=== PATIENT | female | born 1990 | race Native Hawaiian/Other Pacific Islander ===

== ENCOUNTER 2019-07-18 07:56 | Inpatient (IN) ==
[2019-07-18 08:24] LABS: URINE SOURCE VOIDED
[2019-07-18] MEDS ORDERED: TYLENOL PO PRN (08:47)
[2019-07-18] MEDS ORDERED: AMPICILLIN 2 GM in NS 100 ML IV ONE (08:47)
[2019-07-18] MEDS ORDERED: REGLAN PO ONE (08:47)
[2019-07-18] MEDS ORDERED: STADOL IV PRN (08:47)
[2019-07-18] MEDS ORDERED: KEFZOL 1 GM/D5W 1 GM/50 ML IVPB IV PRN (08:47)
[2019-07-18] MEDS ORDERED: PEPCID PO PRN (08:47)
[2019-07-18] MEDS ORDERED: PEPCID PO ONE (08:47)
[2019-07-18] MEDS ORDERED: ZOFRAN IV PRN (08:47)
[2019-07-18] MEDS ORDERED: PEPCID IV PRN (08:47)
[2019-07-18 08:54] LABS: BILIRUBIN URINE NEGATIVE (NEGATIVE); BLOOD URINE NEGATIVE (NEGATIVE); COLOR YELLOW; GLUCOSE URINE NEGATIVE (NEGATIVE); KETONE URINE NEGATIVE (NEGATIVE); LEUKOCYTES URINE MODERATE (NEGATIVE); NITRITE URINE NEGATIVE (NEGATIVE); PROTEIN URINE NEGATIVE (NEGATIVE); SP GRAVITY URINE 1.015; TURBIDITY URINE CLEAR (CLEAR); UROBILINOGEN URINE NORMAL (NORMAL)
[2019-07-18] MEDS ORDERED: PITOCIN 30 UNITS/NS 30 UNIT/500 ML IV.SOLN IV SCH ×2 (09:00→14:30)
[2019-07-18] MEDS ORDERED: SODIUM CHLORIDE 0.9% INJ SCH (09:00)
[2019-07-18] MEDS ORDERED: LR 1,000 ML IV SCH (09:00)
[2019-07-18] MEDS ORDERED: LR 3,000 ML ONE (09:01)
[2019-07-18] MEDS ORDERED: AMPICILLIN ONE (09:01)
[2019-07-18 09:03] LABS: UR AMPHETAMINES QUAL NONE DETECTED (NONE DETECT); UR BARBITUATES QUAL NONE DETECTED (NONE DETECT); UR BENZODIAZEPIN QUAL NONE DETECTED (NONE DETECT); UR CANNABINOIDS QUAL NONE DETECTED (NONE DETECT); UR COCAINE QUAL NONE DETECTED (NONE DETECT); UR METHADONE QUAL NONE DETECTED (NONE DETECT); UR OPIATES QUAL NONE DETECTED (NONE DETECT); UR OXYCODONE QUAL NONE DETECTED (NONE DETECT); UR PCP QUAL NONE DETECTED (NONE DETECT)
[2019-07-18] MEDS ORDERED: SODIUM CHLORIDE 0.9% 10 ML ONE (09:03)
[2019-07-18 09:19] LABS: BASO# 0.08 X1000 (0.0-0.2); BASO% 0.6 % (0.0-0.8); EOS# 0.35 X1000 (0.0-0.7); EOS% 2.8 % (0.0-10.0); HEMATOCRIT 31.5 % (37.0-47.0); HEMOGLOBIN 9.1 g/dL (12.0-16.0); IMM GRAN# 0.04 X1000 (0.0-0.04); IMM GRAN% 0.3 % (0.0-0.5); LYMPH# 2.74 X1000 (1.2-3.4); LYMPH% 21.7 % (20.5-51.1); MCH 17.4 PG (27-31); MCHC 28.9 g/dL (33-37); MCV 60.2 FL (81-99); MONO# 0.73 X1000 (0.11-0.59); MONO% 5.8 % (1.7-9.3); NEUT# 8.71 X1000 (1.4-6.5); NEUT% 68.8 % (42.2-75.2); PLT 294 X1000 (130-400); RBC 5.23 XMIL (4.2-5.4); RDW 20.2 % (11.5-14.5); WBC 12.65 X1000 (4.8-10.8)
[2019-07-18 09:38] LABS: EOS 1 % (1-10); LYMPHS 21 % (21-51); MONO 6 % (1-9); NRBC 1 % (0-0); SEGS 71 % (42-75)
[2019-07-18 09:39] LABS: HYPOCHROM 2+; MICROCYTOSIS 1+
[2019-07-18 12:22] LABS: RAPID HIV PRESUMPTIVE NEGATIVE; RPR NON-REACTIVE (NONREACTIVE); RUBELLA SCREEN IMMUNE (IMMUNE)
[2019-07-18] MEDS ORDERED: AMPICILLIN 1 GM in NS 50 ML IV SCH (12:49)
[2019-07-18] MEDS ORDERED: PERI MEDS (DERMOPLAST/NUPERCAINAL/TUCKS) MISC PRN (14:27)
[2019-07-18] MEDS ORDERED: XYLOCAINE-MPF 1% INJ PRN (14:27)
[2019-07-18] MEDS ORDERED: PITOCIN IM PRN (14:27)
[2019-07-18] MEDS ORDERED: CYTOTEC PO PRN (14:27)
[2019-07-18] MEDS ORDERED: M-M-R II VACCINE SUBQ ONE (14:27)
[2019-07-18] MEDS ORDERED: MINERAL OIL PO PRN (14:27)
[2019-07-18] MEDS ORDERED: BENADRYL IV PRN (14:27)
[2019-07-18] MEDS ORDERED: ATARAX PO PRN (14:27)
[2019-07-18] MEDS ORDERED: BOOSTRIX VACCINE IM ONE (14:27)
[2019-07-18] MEDS ORDERED: HYDROXYZINE IM PRN (14:27)
[2019-07-18] MEDS ORDERED: AMBIEN PO PRN (14:27)
[2019-07-18] MEDS ORDERED: BENADRYL PO PRN (14:27)
[2019-07-18] MEDS ORDERED: PITOCIN 20 UNITS/NS 20 UNITS/1,000 ML IV.SOLN IV SCH (14:30)
[2019-07-18] MEDS: MOTRIN PO PRN (19:42)
--- NOTE | 2019-07-18 20:30 | HISTORY AND PHYSICAL ---
HISTORY OF PRESENT ILLNESS: Ms. Clark is a 29-year-old, G5, P4-0-0-4, at 38 weeks and 6 days, who presents to Labor and Delivery in active labor. The patient reports good movement. Admits to contractions starting at midnight. Denies leakage of fluid or vaginal bleeding. The patient reports receiving care with [facility] with Dr. Carl, and has not seen an admitting coordinator physician since [facility] OB services ceased to exist. PAST MEDICAL HISTORY: Noncontributory, none. PAST SURGICAL HISTORY: None. OBSTETRICAL HISTORY: G5, P4-0-0-4. Four full-term vaginal deliveries. No complications. 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 Carl at [facility]. Reports negative for intraepithelial lesions or malignancies. Menarche at age 11 or 12. Admits to irregular cycles and heavy bleeding. SOCIAL HISTORY: Tobacco cessation in 2014. Admits to alcohol use 1 drink per week prior . No alcohol use with current . Denies drug use. ALLERGIES: No known drug allergies. VITAL SIGNS: Temperature 98.1 degrees Fahrenheit, pulse rate 88, respiration rate 20, blood pressure 147/83, O2 saturations 100% on room air. Height 5 feet 4 inches, weight 188 pounds, body mass index 32.3 kg/m2. PHYSICAL EXAMINATION: GENERAL: No acute distress. Alert, awake, oriented x3. RESPIRATORY: Clear to auscultation bilaterally. Negative rhonchi, rales, or wheezing. CARDIOVASCULAR: Positive S1, S2. Regular rate and rhythm. ABDOMEN: Gravid, nontender to palpation, soft. EXTREMITIES: No calf tenderness. There is +1 edema. PELVIC: Sterile vaginal exam: 5 cm dilated, 70% effaced, -3 station. Electronic monitoring category 1 tracing. Contractions every 5 to 7 minutes. LABORATORY: WBCs 12.65, hemoglobin 9.1, hematocrit 31.5, platelets 294,000. Glucose 93. Urine drug screen is negative. RPR nonreactive. HIV negative. Rubella immune. ASSESSMENT: Ms. Burrows is a 29-year-old, 5, para 4-0-0-4, at 38 weeks and 6 days, who presents to Labor and Delivery in active labor. PLAN: 1. Admit to Labor and Delivery. 2. Obtain routine labor labs. 3. Continuous electronic monitoring. 4. Augment with artificial rupture of membrane and Pitocin if needed. 5. Patient counseled on risks, benefits, and alternatives of spontaneous vaginal delivery, the risks not limited to bleeding, infection, vaginal laceration, and/or emergency delivery. The patient understands the risks and agrees to the following procedure. Estimated weight 6.5 pounds. 6. Anticipate vaginal delivery.
[2019-07-18] MEDS: TRANDATE PO SCH (20:52)
[2019-07-18] MEDS: PERICOLACE PO SCH (20:52)
[2019-07-18 23:46] LABS: HIV ANTIBODY SCREEN SEE COMMENTS
[2019-07-19 06:58] LABS: HEMATOCRIT 23.5 % (37.0-47.0); HEMOGLOBIN 6.7 g/dL (12.0-16.0); MCH 17.6 PG (27-31); MCHC 28.5 g/dL (33-37); MCV 61.8 FL (81-99); PLT 225 X1000 (130-400); RDW 19.9 % (11.5-14.5); WBC 15.54 X1000 (4.8-10.8)
[2019-07-19] MEDS: MOTRIN PO PRN ×2 (08:01→18:18)
[2019-07-19] MEDS: TRANDATE PO SCH ×3 (08:01→21:19)
--- NOTE | 2019-07-19 08:38 | OPERATIVE NOTE ---
PROCEDURE DATE: 07/18/2019 PROCEDURE PERFORMED: Spontaneous vaginal delivery. SURGEON: Dr. Hakeem Mckenna. 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 The vertex was delivered spontaneously over intact perineum. The nuchal cord was identified and reduced after delivery of the head. The anterior shoulders were delivered atraumatically by maternal expulsive efforts, and with the assistance of downward traction. The posterior shoulder delivered with maternal expulsive efforts and upward traction. The remainder of the fetus delivered spontaneously. The was placed on the patient's abdomen and assessed by waiting yoghurt maker. The cord was clamped and cut. Cord blood was obtained for blood gas analysis to enhance uterine contractions. IV oxytocin was administered. The cervix, vagina, and perineum were inspected for lacerations. 2nd degree laceration noted at perineum and repaired with 2-0 chromic in subsequent layers. Good hemostasis was established ESTIMATED BLOOD LOSS: 150 mL. [facility]
[2019-07-19 08:45] LABS: HEPATITIS B SURFACE ANTIGEN SEE COMMENTS
[2019-07-19] MEDS ORDERED: FERROUS SULFATE PO SCH (09:00)
[2019-07-19] MEDS: PERICOLACE PO SCH (21:03)
--- NOTE | 2019-07-20 07:54 | OB/GYN PROGRESS NOTE ---
- Subjective 29 yo PPD#2 s/p at 38w6d with limited care, anemia Patient seen and examined. No complaints this AM. Her pain is well controlled. She states lochia is normal. She is ambulating and voiding without difficulty. She is tolerating a regular diet, denies nausea/vomiting. She denies fever/chills. She is bottle feeding. PP Hgb 6.7, she denies any dizziness/lightheadedness with walking or standing, denies heavy bleeding. She was started on labetalol 200mg BID after arrival due to elevated BP, this has been held in the PP period due to normal blood pressures. She denies any headaches, vision changes, chest pain, SOB, RUQ pain. She desires d/c home today. She plans for nexplanon for PP contraception. OB Physical Exam Vital Signs - 8 hr 07/20/19 01:23 Temperature 98.2 F Pulse Rate 110 H Respiratory Rate 18 Blood Pressure 132/59 O2 Sat by Pulse Oximetry 98 - CONSTITUTIONAL General Appearance: appears well, alert, no apparent distress - EYES Eyes: PERRL/EOMI - HEAD, EARS, NOSE, MOUTH & THROAT HENMT: normocephalic/atraumatic - RESPIRATORY Respiratory: lungs clear, normal breath sounds, no respiratory distress - CARDIOVASCULAR Cardiovascular: regular rate, rhythm, no murmur - GASTROINTESTINAL (ABDOMEN) Abdominal Exam: non tender, soft, other (fundus firm/below umbilicus) - MUSCULOSKELETAL Extremity: normal range of motion, non-tender, normal gait DTR: knee (R): 1+, knee (L): 1+ - PSYCHIATRIC Psych/Mental Status: normal mood/affect Active Medications Generic Name Dose Route Start Last Admin Trade Name Freq PRN Reason Stop Dose Admin Acetaminophen 650 mg 07/18/19 08:47 Tylenol PO Q4-6H PRN PRN Headache Benzocaine 1 each 07/18/19 14:27 Monica Meds (Dermoplast/Nupercainal/Tucks) MISC 3-4XDAY PRN PRN episiotomy/hemorrhoids Diphenhydramine HCl 12.5 mg 07/18/19 14:27 Benadryl IV Q4H PRN PRN Itching Diphenhydramine HCl 25 mg 07/18/19 14:27 Benadryl PO Q4H PRN PRN Itching Famotidine 40 mg 07/18/19 08:47 Pepcid PO Q12H PRN PRN GI upset or indigestion Ferrous Sulfate 325 mg 07/19/19 09:00 07/19/19 18:00 Ferrous Sulfate PO 325 mg DAILY CHARLENE Administration Hydroxyzine HCl 50 mg 07/18/19 14:27 Hydroxyzine IM Q3-4H PRN PRN Nausea Hydroxyzine HCl 50 mg 07/18/19 14:27 Atarax PO Q3-4H PRN PRN Nausea Lactated Ringer's 1,000 mls @ 0 mls/hr 07/18/19 09:00 07/18/19 09:10 Lr IV 125 mls/hr .Q0M CHARLENE Administration As Directed Oxytocin/Sodium Chloride 20 units in 1,000 mls @ 0 mls/hr 07/18/19 14:30 Pitocin 20 Units/Ns IV .Q0M CHARLENE As Directed Ibuprofen 800 mg 07/18/19 14:27 07/19/19 18:18 Motrin PO 800 mg Q8H PRN PRN Administration cramping Misoprostol 800 microgm 07/18/19 14:27 Cytotec PO PRN PRN Severe bleeding Ondansetron HCl 4 mg 07/18/19 08:47 Zofran IV PRN PRN Nausea Oxytocin 20 unit 07/18/19 14:27 Pitocin IM PRN PRN Severe bleeding Senna/Docusate Sodium 1 each 07/18/19 21:00 07/19/19 21:03 Pericolace PO 1 each QHS CHARLENE Administration Sodium Chloride 5 - 10 ml 07/18/19 09:00 Sodium Chloride 0.9% INJ DIRECTED CHARLENE Zolpidem Tartrate 10 mg 07/18/19 14:27 Ambien PO HS PRN PRN Sleep Laboratory Results - last 24 hr 07/18/19 07/18/19 08:00 08:55 Ur Chlamydia/GC DNA SEE COMMENTS Hep Bs Antigen SEE COMMENTS Laboratory Tests 07/18/19 07/18/19 07/18/19 08:00 08:00 08:00 WBC RBC Hgb Hct MCV MCH MCHC RDW Std Deviation Plt Count MPV Immature Gran % (Auto) Neut % (Auto) Lymph % (Auto) Blaine % (Auto) Eos % (Auto) Baso % (Auto) Immature Gran # (Auto) Neut # (Auto) Lymph # (Auto) Blaine # (Auto) Eos # (Auto) Baso # (Auto) Segmented Neutrophils Lymphocytes Monocytes Eosinophils Metamyelocytes Nucleated RBCs Hypochromia Microcytosis Glucose Urine Source VOIDED Urine Color YELLOW Urine Turbidity CLEAR Urine pH 6.0 Ur Specific [place] 1.015 Urine Protein NEGATIVE Ur Glucose (Stick) NEGATIVE Ur Ketones (Stick) NEGATIVE Urine Blood NEGATIVE Urine Nitrite NEGATIVE Urine Bilirubin NEGATIVE Urobilinogen Dipstick NORMAL Urine Leukocytes MODERATE A Urine Opiates Screen NONE DETECTED Ur Oxycodone Screen NONE DETECTED Ur Methadone, Qual NONE DETECTED Ur Barbiturates Screen NONE DETECTED Ur Phencyclidine Scrn NONE DETECTED Ur Amphetamines Screen NONE DETECTED U Benzodiazepines Scrn NONE DETECTED Urine Cocaine Screen NONE DETECTED U Cannabinoids Screen NONE DETECTED RPR Ur Chlamydia/GC DNA SEE COMMENTS Hep Bs Antigen HIV 1&2 Antibody Screen HIV 1&2 Antibody Rapid Rubella Immunity Screen Blood Type Antibody Screen 07/18/19 07/18/19 07/18/19 08:55 08:55 08:55 WBC 12.65 H RBC 5.23 Hgb 9.1 L Hct 31.5 L MCV 60.2 L MCH 17.4 L MCHC 28.9 L RDW Std Deviation 20.2 H Plt Count 294 MPV Not Reportable Immature Gran % (Auto) 0.3 Neut % (Auto) 68.8 Lymph % (Auto) 21.7 Blaine % (Auto) 5.8 Eos % (Auto) 2.8 Baso % (Auto) 0.6 Immature Gran # (Auto) 0.04 Neut # (Auto) 8.71 H Lymph # (Auto) 2.74 Blaine # (Auto) 0.73 H Eos # (Auto) 0.35 Baso # (Auto) 0.08 Segmented Neutrophils 71 Lymphocytes 21 Monocytes 6 Eosinophils 1 Metamyelocytes 1.0 Nucleated RBCs 1 H Hypochromia 2+ Microcytosis 1+ Glucose 93 Urine Source Urine Color Urine Turbidity Urine pH Ur Specific [place] Urine Protein Ur Glucose (Stick) Ur Ketones (Stick) Urine Blood Urine Nitrite Urine Bilirubin Urobilinogen Dipstick Urine Leukocytes Urine Opiates Screen Ur Oxycodone Screen Ur Methadone, Qual Ur Barbiturates Screen Ur Phencyclidine Scrn Ur Amphetamines Screen U Benzodiazepines Scrn Urine Cocaine Screen U Cannabinoids Screen RPR NON-REACTIVE Ur Chlamydia/GC DNA Hep Bs Antigen HIV 1&2 Antibody Screen HIV 1&2 Antibody Rapid PRESUMPTIVE NEGATIVE Rubella Immunity Screen IMMUNE Blood Type Antibody Screen 07/18/19 07/18/19 07/18/19 08:55 08:55 12:22 WBC RBC Hgb Hct MCV MCH MCHC RDW Std Deviation Plt Count MPV Immature Gran % (Auto) Neut % (Auto) Lymph % (Auto) Blaine % (Auto) Eos % (Auto) Baso % (Auto) Immature Gran # (Auto) Neut # (Auto) Lymph # (Auto) Blaine # (Auto) Eos # (Auto) Baso # (Auto) Segmented Neutrophils Lymphocytes Monocytes Eosinophils Metamyelocytes Nucleated RBCs Hypochromia Microcytosis Glucose Urine Source Urine Color Urine Turbidity Urine pH Ur Specific [place] Urine Protein Ur Glucose (Stick) Ur Ketones (Stick) Urine Blood Urine Nitrite Urine Bilirubin Urobilinogen Dipstick Urine Leukocytes Urine Opiates Screen Ur Oxycodone Screen Ur Methadone, Qual Ur Barbiturates Screen Ur Phencyclidine Scrn Ur Amphetamines Screen U Benzodiazepines Scrn Urine Cocaine Screen U Cannabinoids Screen RPR Ur Chlamydia/GC DNA Hep Bs Antigen SEE COMMENTS HIV 1&2 Antibody Screen SEE COMMENTS HIV 1&2 Antibody Rapid Rubella Immunity Screen Blood Type O POSITIVE Antibody Screen NEGATIVE 07/19/19 06:00 WBC 15.54 H RBC 3.80 L Hgb 6.7 L D Hct 23.5 L D MCV 61.8 L MCH 17.6 L MCHC 28.5 L RDW Std Deviation 19.9 H Plt Count 225 MPV Immature Gran % (Auto) Neut % (Auto) Lymph % (Auto) Blaine % (Auto) Eos % (Auto) Baso % (Auto) Immature Gran # (Auto) Neut # (Auto) Lymph # (Auto) [place] # (Auto) Eos # (Auto) Baso # (Auto) Segmented Neutrophils Lymphocytes Monocytes Eosinophils Metamyelocytes Nucleated RBCs Hypochromia Microcytosis Glucose Urine Source Urine Color Urine Turbidity Urine pH Ur Specific [place] Urine Protein Ur Glucose (Stick) Ur Ketones (Stick) Urine Blood Urine Nitrite Urine Bilirubin Urobilinogen Dipstick Urine Leukocytes Urine Opiates Screen Ur Oxycodone Screen Ur Methadone, Qual Ur Barbiturates Screen Ur Phencyclidine Scrn Ur Amphetamines Screen U Benzodiazepines Scrn Urine Cocaine Screen U Cannabinoids Screen RPR Ur Chlamydia/GC DNA Hep Bs Antigen HIV 1&2 Antibody Screen HIV 1&2 Antibody Rapid Rubella Immunity Screen Blood Type Antibody Screen OB Assessment & Plan (1) Status post vaginal delivery Status: Acute Plan: 29 yo PPD#2 s/p at 38w6d with limited PNC, anemia, elevated BP 1. HD stable, afebrile. On Iron BID for anemia 2. Routine PP care 3. Bottle feeding 4. Desires nexplanon for PP contraception 5. Elevated BP on arrival and labetalol 200mg BID started, patient with normal BP in the PP period and labetalol discontinued. She denies any signs/symptoms of PreE. Will plan for d/c home today to return in 1 week to clinic for BP check. 6. SS consult due to limited PNC (2) Limited care Status: Acute Plan: SS consult (3) Anemia Status: Acute Plan: On ferrous sulfate BID, vaginal bleeding WNL, patient asymptomatic
[2019-07-20 08:20] VITALS: BP 143/80
[2019-07-20] MEDS ORDERED: FERROUS SULFATE PO SCH (09:00)
--- NOTE | 2019-07-21 10:54 | DISCHARGE SUMMARY ---
ADMISSION DATE: 07/18/2019 DISCHARGE DATE: 07/20/2019 ADMITTING PHYSICIAN: Hakeem Mckenna DO. CONDITION ON DISCHARGE: Stable. FINAL DIAGNOSES: 1. A 29-year-old, G 5, P 5-0-0-5 day #2 status post spontaneous vaginal delivery at 38 weeks and 6 days. 2. Limited care. 3. Anemia. 4. Intermittently elevated blood pressures. PROCEDURE PERFORMED: Spontaneous vaginal delivery on 07/18. HOSPITAL COURSE: The patient presented to labor and delivery in active labor. She was subsequently admitted and underwent a spontaneous vaginal delivery of a viable female infant, Apgars 9 and 10. She had limited care this . She had been followed by Dr. Carl at [facility] for some care. Prior to delivery, patient had some elevated blood pressures and was started on labetalol 200 mg b.i.d. In the period, her blood pressures normalized and the labetalol was held. She denies any signs or symptoms of preeclampsia, and blood pressure remained normotensive throughout her course. On day #2, she was deemed stable for discharge. She is ambulating and voiding without difficulty. She is tolerating a regular diet. She noted minimal lochia. Manager [employer] were consulted prior to discharge for lack of care. She was started on ferrous sulfate b.i.d. for anemia. She was discharged home in stable condition. We will plan to follow up in 1 week for blood pressure check in clinic. DISCHARGE MEDICATIONS: 1. Motrin 800 mg p.o. q. 8 hours. 2. Ferrous sulfate 325 mg p.o. b.i.d. 3. Monica-Colace 1 tab p.o. at bedtime p.r.n. constipation. FOLLOW-UP INSTRUCTIONS: Patient instructed to notify doctor with temperature greater than 100.4 degrees Fahrenheit, vaginal bleeding greater than a pad an hour, foul-smelling discharge or severe abdominal pain, systolic blood pressure greater than 150 or diastolic blood pressure greater than 100. She was counseled on signs and symptoms of preeclampsia, which include headache, blurry vision, chest pain, shortness of breath, right upper quadrant pain, persistent nausea or vomiting. FOLLOW UP APPOINTMENTS: The patient instructed to follow up in clinic in with Dr. Person for repeat blood pressure check in 1 week.
== END 2019-07-20 11:05 | disposition home or self-care (01) ==
LOC: OPLD 07:56 → LD 08:02
PROVIDERS: ADMIT Obstetrics & Gynecology; ATTEND Obstetrics & Gynecology